=== PATIENT | female | born 1945 | race Caucasian/White ===

== ENCOUNTER 2018-12-24 23:51 | Emergency (ER) | payer MEDICARE, BC ==
[~2018-12-24] VITALS: Ht 165.1 cm; Wt 70.3 kg
[2018-12-25] MEDS ORDERED: OMEPRAZOLE CAP 40MG (00:09)
[2018-12-25] MEDS ORDERED: AMLODIPINE TAB 5MG (00:09)
[2018-12-25] MEDS ORDERED: ATORVASTATIN TAB 20MG (00:09)
[2018-12-25] MEDS ORDERED: IBUP-23 PO (00:09)
[2018-12-25] MEDS ORDERED: ASPI-1094 PO (00:09)
--- NOTE | 2018-12-25 00:33 | NUR ---
Dr. Porter at bedside for MSE.
[2018-12-25 00:48] LABS: BASOPHILS % (AUTO) 0.3 % (0.0-2.0); EOSINOPHILS % (AUTO) 0.2 % (0.0-7.0); HEMATOCRIT 39.9 % (31.2-41.9); LYMPHOCYTES # (AUTO) 1.3 K/uL (20.0-40.0); LYMPHOCYTES % (AUTO) 11.4 % (20.5-51.5); MEAN CORPUSCULAR HEMOGLOBIN 27.9 uug (24.7-32.8); MEAN CORPUSCULAR HGB CONC 33 g/dL (32.3-35.6); MEAN CORPUSCULAR VOLUME 85.8 fL (75.5-95.3); MONOCYTES # (AUTO) 0.1 K/uL (2.0-10.0); MONOCYTES % (AUTO) 0.8 % (0.0-11.0); NEUTROPHILS # (AUTO) 9.9 K/uL (1.8-8.9); NEUTROPHILS % (AUTO) 87.3 % (38.5-71.5); PLATELET COUNT (AUTO) 272 K/uL (179-408); RED BLOOD CELL COUNT(AUTO) 4.66 MIL/uL (3.63-4.92); WHITE BLOOD COUNT (AUTO) 11.4 K/uL (3.8-11.8)
[2018-12-25 01:00] LABS: CARBON DIOXIDE 24 mmol/L (21-32); CHLORIDE 101 mmol/L (98-107); GLUCOSE 118 mg/dL (74-106); POTASSIUM 3.3 mmol/L (3.5-5.1); UREA NITROGEN, BLOOD 34 mg/dL (7-18)
[2018-12-25 01:15] LABS: ALANINE AMINOTRANSFERASE 90 U/L (14-59); ALKALINE PHOSPHATASE 67 U/L (50-136); ASPARTATE AMINOTRANSFERASE 45 U/L (15-37); BILIRUBIN,DIRECT 0.2 mg/dL (0.0-0.2); BILIRUBIN,TOTAL 0.4 mg/dL (0.2-1.0); LIPASE 162 U/L (73-393)
[2018-12-25] MEDS ORDERED: IV NORMAL SALINE 500 ML BAG IV ONE ×2 (01:30→03:15)
--- NOTE | 2018-12-25 01:43 | NUR ---
Pt out of ER for CT.
--- NOTE | 2018-12-25 02:00 | NUR ---
Pt back to ER from CT.
[2018-12-25] MEDS ORDERED: ONDANSETRON 4 MG/2 ML VIAL ONE (02:29)
[2018-12-25] MEDS ORDERED: MORPHINE SULFATE 2 MG/1 ML DISP.SYRIN ONE (02:30)
[2018-12-25] MEDS ORDERED: MORPHINE SULFATE 2 MG/1 ML DISP.SYRIN IV ONE (02:30)
[2018-12-25] MEDS ORDERED: ONDANSETRON 4 MG/2 ML VIAL IV ONE (02:30)
--- NOTE | 2018-12-25 02:35 | NUR ---
Pt provided urine sample, sent to lab.
[2018-12-25 02:53] LABS: *BILIRUBIN,URIN NEGATIVE (NEGATIVE); *BLOOD, URINE 2+ (NEGATIVE); *CLARITY,URINE CLOUDY (CLEAR); *COLOR,URINE YELLOW (YELLOW); *KETONES,URINE NEGATIVE (NEGATIVE); *UROBILINOGEN,URINE 0.2 E.U./dl (NORMAL); LEUKOCYTE ESTERASE ,URINE 1+ (NEGATIVE); NITRITE, URINE NEGATIVE (NEGATIVE); UGLUCOSE NEGATIVE (NEGATIVE)
[2018-12-25 03:06] LABS: BACTERIA,URINE MANY /HPF (NONE SEEN); SQUAMOUS EPITHELIAL CELL,UR FEW /HPF (NONE SEEN)
[2018-12-25] MEDS ORDERED: KETOROLAC TROMETHAMINE 15 MG INJ IVP ONE (03:15)
--- NOTE | 2018-12-25 03:25 | NUR ---
DR MURRAY SPOKE WITH DR RAMOS UROLOGY CONSULT
[2018-12-25] MEDS ORDERED: CEFTRIAXONE 1 G in IV DEXTROSE 5% 50 ML IV ONE (03:30)
[2018-12-25] MEDS ORDERED: CEFTRIAXONE 1 G VIAL ONE (03:37)
[2018-12-25] MEDS ORDERED: KETOROLAC TROMETHAMINE 15 MG INJ ONE (03:37)
[2018-12-25] MEDS ORDERED: POTASSIUM CHLORIDE 20 MEQ TAB.PRT.SR PO ONE (03:45)
[2018-12-25] MEDS ORDERED: POTASSIUM CHLORIDE 20 MEQ TAB.PRT.SR ONE (03:53)
--- NOTE | 2018-12-25 04:51 | NUR ---
Patient discharged to home in stable conditon. Written and verbal after care instructions given. Patient verbalizes understanding of instructions. Pt ambulated out of ER with steady gait, no acute signs of distress, VSS, all belongings taken, IV site discontinued, to be driven home by via private vehicle.
[2018-12-25 04:52] VITALS: BP 116/78
== END 2018-12-25 04:53 | disposition home or self-care (01) ==
LOC: ER 23:52
DX: N20.1 Calculus of ureter (principal); N39.0 Urinary tract infection, site not specified; E86.0 Dehydration; K21.9 Gastro-esophageal reflux disease without esophagitis; G89.29 Other chronic pain; M54.5 Low back pain; Z88.1 Allergy status to other antibiotic agents; Z79.1 Long term (current) use of non-steroidal anti-inflammatories (NSAID); Z79.82 Long term (current) use of aspirin; Z79.899 Other long term (current) drug therapy
CPT/HCPCS: 36415; 71045; 74176; 80048; 80076; 81001; 83605; 83690; 84484; 85025; 85730; 87040 ×2; 87077 ×2; 87086; 87186 ×2; 93005; 96361; 96374; 96375; 99284; J0696; J1885; J2270; J2405; J7060; 70030-TC; A4663; J7030

== ENCOUNTER 2024-07-15 07:10 | Inpatient (IN) | payer MEDICARE, BC ==
[~2024-07-15] VITALS: Ht 165.1 cm; Wt 61.2 kg
[~2024-07-15 07:10] MED LIST: AMLODIPINE TAB 5MG; ASPI-1094 PO; ATORVASTATIN TAB 20MG; IBUP-23 PO; OMEPRAZOLE CAP 40MG
[2024-07-15] MEDS ORDERED: AMLO-212 PO (07:19)
[2024-07-15] MEDS ORDERED: PRAV20TA4 PO (07:19)
[2024-07-15] MEDS ORDERED: ONDANSETRON 4 MG/2 ML VIAL ONE (07:22)
[2024-07-15] MEDS ORDERED: HYDROMORPHONE 1 MG/1 ML DISP.SYRIN ONE ×3 (07:23→10:35)
[2024-07-15] MEDS: HYDROMORPHONE 1 MG/1 ML DISP.SYRIN IV ONE ×2 (07:25→08:54)
[2024-07-15] MEDS: ONDANSETRON 4 MG/2 ML VIAL IV ONE (07:25)
[2024-07-15] MEDS: IV NORMAL SALINE 1000 ML BAG IV ONE (07:25)
[2024-07-15 07:47] LABS: BASOPHILS % (AUTO) 0.4 % (0.0-2.0); EOSINOPHILS % (AUTO) 0.5 % (0.0-7.0); HEMATOCRIT 40.6 % (31.2-41.9); HEMOGLOBIN 13.3 g/dL (10.9-14.3); LYMPHOCYTES # (AUTO) 0.7 K/uL (0.8-4.8); LYMPHOCYTES % (AUTO) 13.5 % (20.5-51.5); MEAN CORPUSCULAR HEMOGLOBIN 29.4 uug (24.7-32.8); MEAN CORPUSCULAR HGB CONC 33 g/dL (32.3-35.6); MEAN CORPUSCULAR VOLUME 89.6 fL (75.5-95.3); MONOCYTES # (AUTO) 0.1 K/uL (0.1-1.30); NEUTROPHILS # (AUTO) 4.1 K/uL (1.8-8.9); NEUTROPHILS % (AUTO) 83.6 % (38.5-71.5); PLATELET COUNT (AUTO) 417 K/uL (179-408); RED BLOOD CELL COUNT(AUTO) 4.53 MIL/uL (3.63-4.92); RED CELL DISTRIBUTION WIDTH 14.6 % (12.3-17.7); WHITE BLOOD COUNT (AUTO) 4.8 K/uL (3.8-11.8)
[2024-07-15 08:19] LABS: DIFFERENTIAL COMMENT 1
[2024-07-15 08:59] LABS: CALCIUM 10.8 mg/dL (8.5-10.1); CARBON DIOXIDE 20 mmol/L (21-32); CHLORIDE 101 mmol/L (98-107); GLUCOSE 167 mg/dL (74-106); POTASSIUM 3.5 mmol/L (3.5-5.1); SODIUM SERUM 135 mmol/L (136-145); UREA NITROGEN, BLOOD 36 mg/dL (7-18)
[2024-07-15 09:07] LABS: ALANINE AMINOTRANSFERASE 87 U/L (14-59); ALBUMIN 3.4 g/dL (3.4-5.0); ALKALINE PHOSPHATASE 187 U/L (50-136); ASPARTATE AMINOTRANSFERASE 23 U/L (15-37); BILIRUBIN,DIRECT 0.3 mg/dL (0.0-0.2); BILIRUBIN,TOTAL 0.9 mg/dL (0.2-1.0); TOTAL PROTEIN, SERUM 7.2 g/dL (6.4-8.2)
[2024-07-15 09:30] LABS: LACTIC ACID 2.7 mmol/L (0.4-2.0)
[2024-07-15] MEDS ORDERED: AZTREONAM 1 G VIAL ONE (09:38)
[2024-07-15] MEDS ORDERED: METRONIDAZOLE 500 MG/NS 100ML 100 ML IV ONE (09:39)
[2024-07-15] MEDS: METRONIDAZOLE 500 MG/NS 100 ML PIGGYBACK IV ONE (09:43)
[2024-07-15] MEDS: DOCUSATE SODIUM 100 MG CAPSULE PO SCH (10:15)
[2024-07-15] MEDS: AZTREONAM 1 G VIAL IM ONE (10:21)
[2024-07-15] MEDS ORDERED: METOCLOPRAMIDE HCL 10 MG/2 ML VIAL ONE (10:35)
[2024-07-15] MEDS: HYDROMORPHONE 1 MG/1 ML DISP.SYRIN IV STA (10:40)
[2024-07-15] MEDS: METOCLOPRAMIDE HCL 10 MG/2 ML VIAL IV STA (10:40)
[2024-07-15 11:21] LABS: LIPASE 28 U/L (16-77)
[2024-07-15] MEDS ORDERED: DOCU100C36 PO (11:22)
[2024-07-15] MEDS ORDERED: DOXY100C5 PO (11:22)
[2024-07-15] MEDS ORDERED: ASPI81TA31 PO (11:22)
[2024-07-15] MEDS ORDERED: NAPR500T6 PO (11:22)
[2024-07-15] MEDS ORDERED: CHOL-35 PO (11:22)
[2024-07-15] MEDS ORDERED: TRAM50TA2 PO (11:22)
[2024-07-15] MEDS ORDERED: ACET-2605 PO (11:22)
[2024-07-15] MEDS ORDERED: TROS60CA3 PO (11:28)
[2024-07-15 11:33] VITALS: BP 124/72; TEMP 98.2; O2SAT 95
[2024-07-15 15:48] VITALS: BP 107/66; TEMP 98; O2SAT 90
[2024-07-15] MEDS ORDERED: CEFTRIAXONE 1 G in IV DEXTROSE 5% 50 ML IV SCH (16:15)
[2024-07-15] MEDS: IV NS 1000 ML 1,000 ML IV ONE (16:46)
[2024-07-15] MEDS: ENOXAPARIN SODIUM 40 MG/0.4 ML DISP.SYRIN SQ SCH (16:50)
[2024-07-15 17:07] VITALS: O2SAT 92
[2024-07-15 17:21] LABS: BASOPHILS # (AUTO) 0.1 K/UL (0.0-0.2); BASOPHILS % (AUTO) 2.5 % (0.0-2.0); EOSINOPHILS % (AUTO) 0.1 % (0.0-7.0); HEMATOCRIT 39.8 % (31.2-41.9); LYMPHOCYTES # (AUTO) 0.2 K/uL (0.8-4.8); LYMPHOCYTES % (AUTO) 4.1 % (20.5-51.5); MEAN CORPUSCULAR HEMOGLOBIN 29.1 uug (24.7-32.8); MEAN CORPUSCULAR HGB CONC 33 g/dL (32.3-35.6); MEAN CORPUSCULAR VOLUME 88.9 fL (75.5-95.3); MONOCYTES # (AUTO) 0.3 K/uL (0.1-1.30); MONOCYTES % (AUTO) 6.1 % (0.0-11.0); NEUTROPHILS # (AUTO) 4.4 K/uL (1.8-8.9); NEUTROPHILS % (AUTO) 87.2 % (38.5-71.5); PLATELET COUNT (AUTO) 405 K/uL (179-408); RED BLOOD CELL COUNT(AUTO) 4.48 MIL/uL (3.63-4.92); RED CELL DISTRIBUTION WIDTH 14.3 % (12.3-17.7); WHITE BLOOD COUNT (AUTO) 5.1 K/uL (3.8-11.8)
[2024-07-15 17:29] LABS: DIFFERENTIAL COMMENT 1
[2024-07-15] MEDS: LACTULOSE 20 G/30 ML LIQUID UDC PO ONE (18:15)
[2024-07-15] MEDS: SORBITOL 70% SOLUTION 30 ML UDC PO ONE (18:15)
[2024-07-15] MEDS: BISACODYL 10 MG SUPP.RECT RC ONE (18:25)
[2024-07-15 18:58] VITALS: BP 98/51; O2SAT 95
[2024-07-15] MEDS: IV NS 1000 ML 1,000 ML IV PRN (19:28)
[2024-07-15 20:00] VITALS: BP 107/68; TEMP 98; O2SAT 92
[2024-07-15] MEDS: METRONIDAZOLE 500 MG TABLET PO SCH (20:31)
[2024-07-15] MEDS: ONDANSETRON 4 MG/2 ML VIAL IV PRN (20:32)
[2024-07-15] MEDS: PIPERACILLIN SODIUM/TAZOBACTAM 3.375 G in IV DEXTROSE 5% 100 ML IV SCH (21:04)
[2024-07-16] VITALS (35 sets, daily range): BP systolic 89–120; BP diastolic 42–86; TEMP 97.7–98.8; O2SAT 84–100
[2024-07-16 04:34] LABS: ABG BASE EXCESS -7.9 mmol/L (-2.0-3.0); ABG HCO3 17.5 mmol/L (21.0-28.0); ABG PCO2 35.6 mmHg (32.0-45.0); ABG PH 7.309 (7.350-7.450); ABG PO2 73.5 mmHg (83.0-108.0); ABG SITE RIGHT RADIAL; ABG TOTAL HEMOGLOBIN 15.1 G/dL (12.0-16.0); AaDO2 93.6 mmHg; COHb 1.3 % (0.5-1.5); MetHb 0.3 % (0.0-1.5); O2Hb 93.7 % (94.0-98.0)
[2024-07-16] MEDS: SODIUM BICARBONATE 8.4% 50 MEQ/50 ML DISP.SYRIN IV ONE (05:36)
[2024-07-16 06:57] LABS: BASOPHILS % (AUTO) 0.1 % (0.0-2.0); HEMATOCRIT 36.1 % (31.2-41.9); HEMOGLOBIN 11.9 g/dL (10.9-14.3); LYMPHOCYTES # (AUTO) 0.6 K/uL (0.8-4.8); LYMPHOCYTES % (AUTO) 7.5 % (20.5-51.5); MEAN CORPUSCULAR HEMOGLOBIN 29.6 uug (24.7-32.8); MEAN CORPUSCULAR HGB CONC 33 g/dL (32.3-35.6); MONOCYTES # (AUTO) 0.5 K/uL (0.1-1.30); MONOCYTES % (AUTO) 6.9 % (0.0-11.0); NEUTROPHILS # (AUTO) 6.8 K/uL (1.8-8.9); NEUTROPHILS % (AUTO) 85.5 % (38.5-71.5); PLATELET COUNT (AUTO) 370 K/uL (179-408); RED BLOOD CELL COUNT(AUTO) 4.01 MIL/uL (3.63-4.92); RED CELL DISTRIBUTION WIDTH 14.5 % (12.3-17.7); WHITE BLOOD COUNT (AUTO) 7.9 K/uL (3.8-11.8)
[2024-07-16 06:58] LABS: DIFFERENTIAL COMMENT 1
[2024-07-16 07:08] LABS: CALCIUM 10.4 mg/dL (8.5-10.1); CARBON DIOXIDE 16 mmol/L (21-32); CHLORIDE 106 mmol/L (98-107); CREATININE 1.5 mg/dL (0.6-1.3); GLUCOSE 116 mg/dL (74-106); MAGNESIUM 2.7 mg/dL (1.8-2.4); PHOSPHOROUS 5.9 mg/dL (2.5-4.9); POTASSIUM 4.2 mmol/L (3.5-5.1); SODIUM SERUM 132 mmol/L (136-145); UREA NITROGEN, BLOOD 51 mg/dL (7-18)
[2024-07-16 07:50] LABS: ABG HCO3 15.1 mmol/L (21.0-28.0); ABG PCO2 27.8 mmHg (32.0-45.0); ABG PH 7.352 (7.350-7.450); ABG PO2 87.1 mmHg (83.0-108.0); ABG SITE RIGHT RADIAL; ABG TOTAL HEMOGLOBIN 12.5 G/dL (12.0-16.0); AaDO2 96.4 mmHg; COHb 0.2 % (0.5-1.5); MetHb 0.3 % (0.0-1.5); O2Hb 96.2 % (94.0-98.0)
[2024-07-16] MEDS: BISACODYL 10 MG SUPP.RECT RC ONE (09:20)
[2024-07-16] MEDS: ACETAMINOPHEN 325 MG TABLET PO PRN (09:25)
[2024-07-16 13:17] LABS: ABG BASE EXCESS -7.2 mmol/L (-2.0-3.0); ABG HCO3 15.9 mmol/L (21.0-28.0); ABG PCO2 25.8 mmHg (32.0-45.0); ABG PH 7.409 (7.350-7.450); ABG PO2 65.2 mmHg (83.0-108.0); ABG TOTAL HEMOGLOBIN 12.2 G/dL (12.0-16.0); AaDO2 93.4 mmHg; COHb 0.6 % (0.5-1.5); MetHb 0.3 % (0.0-1.5); O2Hb 92.9 % (94.0-98.0)
[2024-07-16] MEDS ORDERED: METRONIDAZOLE 500 MG TABLET PO SCH (14:00)
[2024-07-16] MEDS: FLEET ENEMA 133 ML BOTTLE RC ONE (15:12)
[2024-07-16 20:24] LABS: *BILIRUBIN,URIN 2+ (NEGATIVE); *BLOOD, URINE 1+ (NEGATIVE); *CLARITY,URINE CLEAR (CLEAR); *COLOR,URINE DARK YELLOW (YELLOW); *KETONES,URINE TRACE (NEGATIVE); *PROTEIN,URINE 1+ (NEGATIVE); LEUKOCYTE ESTERASE ,URINE NEGATIVE (NEGATIVE); NITRITE, URINE NEGATIVE (NEGATIVE); PH,URINE 5.5 (5.0-8.0); UGLUCOSE NEGATIVE (NEGATIVE)
[2024-07-16 20:39] LABS: WBC,URINE 0-3 /HPF (0-3)
[2024-07-16 20:40] LABS: BACTERIA,URINE FEW /HPF (NONE SEEN); SQUAMOUS EPITHELIAL CELL,UR FEW /HPF (NONE SEEN)
[2024-07-16] MEDS: IV NORMAL SALINE 250 ML IV ONE (22:49)
[2024-07-16] MEDS: MORPHINE SULFATE 2 MG/1 ML DISP.SYRIN IV PRN (23:47)
[2024-07-17] VITALS (72 sets, daily range): BP systolic 81–142; BP diastolic 52–107; TEMP 97.8–98.8; O2SAT 90–97
[2024-07-17] MEDS ORDERED: PHENYLEPHRINE IV 50 MG in IV NORMAL SALINE 245 ML IV PRN (00:30)
[2024-07-17] MEDS ORDERED: PHENYLEPHRINE 10 MG/1 ML VIAL ONE (00:57)
[2024-07-17] MEDS: PHENYLEPHRINE IV 50 MG in IV NORMAL SALINE 245 ML IV PRN (01:01)
[2024-07-17] MEDS: DILTIAZEM HCL 25 MG IV IV ONE (02:16)
[2024-07-17 05:51] LABS: BASOPHILS % (AUTO) 0.1 % (0.0-2.0); EOSINOPHILS % (AUTO) 0.1 % (0.0-7.0); HEMOGLOBIN 10.8 g/dL (10.9-14.3); LYMPHOCYTES # (AUTO) 0.5 K/uL (0.8-4.8); LYMPHOCYTES % (AUTO) 4.7 % (20.5-51.5); MEAN CORPUSCULAR HEMOGLOBIN 29.7 uug (24.7-32.8); MEAN CORPUSCULAR HGB CONC 34 g/dL (32.3-35.6); MEAN CORPUSCULAR VOLUME 88.1 fL (75.5-95.3); MONOCYTES # (AUTO) 0.3 K/uL (0.1-1.30); MONOCYTES % (AUTO) 3.2 % (0.0-11.0); NEUTROPHILS # (AUTO) 8.9 K/uL (1.8-8.9); NEUTROPHILS % (AUTO) 91.9 % (38.5-71.5); PLATELET COUNT (AUTO) 336 K/uL (179-408); RED BLOOD CELL COUNT(AUTO) 3.63 MIL/uL (3.63-4.92); RED CELL DISTRIBUTION WIDTH 14.6 % (12.3-17.7); WHITE BLOOD COUNT (AUTO) 9.7 K/uL (3.8-11.8)
[2024-07-17 06:00] LABS: CALCIUM 9.1 mg/dL (8.5-10.1); CARBON DIOXIDE 20 mmol/L (21-32); CHLORIDE 111 mmol/L (98-107); CREATININE 1.4 mg/dL (0.6-1.3); GLUCOSE 99 mg/dL (74-106); MAGNESIUM 2.6 mg/dL (1.8-2.4); PHOSPHOROUS 6.9 mg/dL (2.5-4.9); POTASSIUM 3.8 mmol/L (3.5-5.1); SODIUM SERUM 144 mmol/L (136-145); UREA NITROGEN, BLOOD 59 mg/dL (7-18)
[2024-07-17 06:37] LABS: ABG BASE EXCESS -7.5 mmol/L (-2.0-3.0); ABG HCO3 16.8 mmol/L (21.0-28.0); ABG PCO2 30.2 mmHg (32.0-45.0); ABG PH 7.362 (7.350-7.450); ABG PO2 63.1 mmHg (83.0-108.0); ABG SITE RIGHT RADIAL; ABG TOTAL HEMOGLOBIN 11.7 G/dL (12.0-16.0); AaDO2 91.8 mmHg; COHb 0.1 % (0.5-1.5); MetHb 0.1 % (0.0-1.5); O2Hb 91.8 % (94.0-98.0)
[2024-07-17] MEDS: BISACODYL 10 MG SUPP.RECT RC ONE (07:06)
[2024-07-17] MEDS: IV NS 1000 ML 1,000 ML IV ONE (08:20)
[2024-07-17] MEDS: FAMOTIDINE. 20 MG/2 ML VIAL IV SCH (09:35)
[2024-07-17] MEDS ORDERED: SWABABLE VALVE TRANSFER SET EA MC ONE (09:39)
[2024-07-17] MEDS ORDERED: IV NORMAL SALINE 250 ML IV ONE (09:39)
[2024-07-17] MEDS ORDERED: IOHEXOL 350 100 ML INFUS..BTL ONE (09:39)
[2024-07-17] MEDS ORDERED: HEPARIN/D5W 25000 UNITS/500 ML BAG IV ONE (10:00)
[2024-07-17] MEDS: HEPARIN/D5W DRIP 500 ML IV PRN (10:32)
[2024-07-17] MEDS: AMIODARONE HCL IV 150 MG in IV DEXTROSE 5% 100 ML IV ONE (12:05)
[2024-07-17] MEDS: AMIODARONE HCL IV 450 MG in IV DEXTROSE 5% 250 ML IV PRN (12:26)
[2024-07-17] MEDS ORDERED: FLEET ENEMA 133 ML BOTTLE RC PRN (20:45)
[2024-07-17 20:49] LABS: ABG BASE EXCESS -8.4 mmol/L (-2.0-3.0); ABG HCO3 16.1 mmol/L (21.0-28.0); ABG PCO2 30.3 mmHg (32.0-45.0); ABG PH 7.343 (7.350-7.450); ABG PO2 71.9 mmHg (83.0-108.0); ABG SITE LEFT RADIAL; AaDO2 93.9 mmHg; COHb 0.3 % (0.5-1.5); MetHb 0.2 % (0.0-1.5); O2Hb 93.6 % (94.0-98.0)
[2024-07-17 20:58] LABS: CALCIUM 8.6 mg/dL (8.5-10.1); CARBON DIOXIDE 17 mmol/L (21-32); CHLORIDE 113 mmol/L (98-107); CREATININE 1.3 mg/dL (0.6-1.3); GLUCOSE 113 mg/dL (74-106); POTASSIUM 3.2 mmol/L (3.5-5.1); SODIUM SERUM 141 mmol/L (136-145); UREA NITROGEN, BLOOD 57 mg/dL (7-18)
[2024-07-17 20:59] LABS: BASOPHILS % (AUTO) 0.1 % (0.0-2.0); DIFFERENTIAL COMMENT 1; EOSINOPHILS % (AUTO) 0.1 % (0.0-7.0); HEMATOCRIT 31.2 % (31.2-41.9); HEMOGLOBIN 10.4 g/dL (10.9-14.3); LYMPHOCYTES # (AUTO) 0.4 K/uL (0.8-4.8); LYMPHOCYTES % (AUTO) 5.4 % (20.5-51.5); MEAN CORPUSCULAR HEMOGLOBIN 29.2 uug (24.7-32.8); MEAN CORPUSCULAR HGB CONC 33 g/dL (32.3-35.6); MONOCYTES # (AUTO) 0.3 K/uL (0.1-1.30); MONOCYTES % (AUTO) 3.8 % (0.0-11.0); NEUTROPHILS # (AUTO) 6.1 K/uL (1.8-8.9); NEUTROPHILS % (AUTO) 90.6 % (38.5-71.5); PLATELET COUNT (AUTO) 291 K/uL (179-408); RED BLOOD CELL COUNT(AUTO) 3.54 MIL/uL (3.63-4.92); RED CELL DISTRIBUTION WIDTH 14.4 % (12.3-17.7); WHITE BLOOD COUNT (AUTO) 6.8 K/uL (3.8-11.8)
[2024-07-17] MEDS: FLEET ENEMA 133 ML BOTTLE RC ONE (20:59)
[2024-07-17 21:03] LABS: ALANINE AMINOTRANSFERASE 48 U/L (14-59); ALBUMIN 1.5 g/dL (3.4-5.0); ALKALINE PHOSPHATASE 62 U/L (50-136); ASPARTATE AMINOTRANSFERASE 56 U/L (15-37); BILIRUBIN,TOTAL 0.6 mg/dL (0.2-1.0); TOTAL PROTEIN, SERUM 5.3 g/dL (6.4-8.2)
[2024-07-17 21:20] LABS: BAND % (MANUAL) 15 % (0-10); LYMPHOCYTES % (MANUAL) 8 % (20-40); MONOCYTES % (MANUAL) 4 % (2-10); NEUTROPHILS % (MANUAL) 73 % (42-75)
[2024-07-17 21:21] LABS: PLATELET ESTIMATE ADEQU
[2024-07-17] MEDS: POTASSIUM CHLORIDE 50 ML IV SCH (22:53)
[2024-07-18] VITALS (35 sets, daily range): BP systolic 133–169; BP diastolic 46–149; TEMP 97.9–99.9; O2SAT 92–98
[2024-07-18 06:23] LABS: ABG BASE EXCESS -8.6 mmol/L (-2.0-3.0); ABG HCO3 15.5 mmol/L (21.0-28.0); ABG PCO2 27.8 mmHg (32.0-45.0); ABG PH 7.364 (7.350-7.450); ABG PO2 71.3 mmHg (83.0-108.0); ABG SITE LEFT RADIAL; ABG TOTAL HEMOGLOBIN 11.2 G/dL (12.0-16.0); AaDO2 94.2 mmHg; COHb 0.2 % (0.5-1.5); MetHb 0.3 % (0.0-1.5); O2Hb 93.9 % (94.0-98.0)
[2024-07-18 06:27] LABS: BASOPHILS % (AUTO) 0.1 % (0.0-2.0); EOSINOPHILS % (AUTO) 0.1 % (0.0-7.0); HEMATOCRIT 29.8 % (31.2-41.9); HEMOGLOBIN 10.1 g/dL (10.9-14.3); LYMPHOCYTES # (AUTO) 0.4 K/uL (0.8-4.8); LYMPHOCYTES % (AUTO) 6.9 % (20.5-51.5); MEAN CORPUSCULAR HEMOGLOBIN 29.6 uug (24.7-32.8); MEAN CORPUSCULAR HGB CONC 34 g/dL (32.3-35.6); MEAN CORPUSCULAR VOLUME 87.7 fL (75.5-95.3); MONOCYTES # (AUTO) 0.2 K/uL (0.1-1.30); MONOCYTES % (AUTO) 3.5 % (0.0-11.0); NEUTROPHILS # (AUTO) 5.6 K/uL (1.8-8.9); NEUTROPHILS % (AUTO) 89.4 % (38.5-71.5); PLATELET COUNT (AUTO) 278 K/uL (179-408); RED CELL DISTRIBUTION WIDTH 14.5 % (12.3-17.7); WHITE BLOOD COUNT (AUTO) 6.3 K/uL (3.8-11.8)
[2024-07-18 06:48] LABS: ALANINE AMINOTRANSFERASE 47 U/L (14-59); ALKALINE PHOSPHATASE 65 U/L (50-136); AMYLASE 195 U/L (25-115); ASPARTATE AMINOTRANSFERASE 48 U/L (15-37); BILIRUBIN,DIRECT 0.4 mg/dL (0.0-0.2); BILIRUBIN,TOTAL 0.6 mg/dL (0.2-1.0); CALCIUM 8.3 mg/dL (8.5-10.1); CARBON DIOXIDE 18 mmol/L (21-32); CHLORIDE 114 mmol/L (98-107); CREATININE 1.1 mg/dL (0.6-1.3); GLUCOSE 119 mg/dL (74-106); LIPASE 21 U/L (16-77); MAGNESIUM 2.7 mg/dL (1.8-2.4); PHOSPHOROUS 4.3 mg/dL (2.5-4.9); POTASSIUM 3.5 mmol/L (3.5-5.1); SODIUM SERUM 144 mmol/L (136-145); TOTAL PROTEIN, SERUM 5.3 g/dL (6.4-8.2); UREA NITROGEN, BLOOD 53 mg/dL (7-18)
[2024-07-18 06:55] LABS: ALBUMIN 1.4 g/dL (3.4-5.0)
[2024-07-18 07:11] LABS: DIFFERENTIAL COMMENT 1
[2024-07-18 07:22] LABS: C-REACTIVE PROTEIN 21.15 mg/dL (0.00-0.30)
[2024-07-18] MEDS: BISACODYL 10 MG SUPP.RECT RC ONE (13:03)
[2024-07-18 13:08] LABS: HIV-1 p24 ANTIGEN NON REACTIVE (NONREACTIVE); HIV-1/2 ANTIBODY NON REACTIVE (NONREACTIVE)
[2024-07-18] MEDS: SODIUM BICARBONATE 8.4% 50 MEQ in IV D5W 1000ML 1,000 ML IV PRN (13:16)
[2024-07-18] MEDS ORDERED: AMIODARONE HCL 150 MG/3 ML VIAL IV ONE (22:20)
[2024-07-19] VITALS (27 sets, daily range): BP systolic 129–170; BP diastolic 50–79; TEMP 97.5–98.5; O2SAT 83–99
[2024-07-19 06:54] LABS: BASOPHILS % (AUTO) 0.1 % (0.0-2.0); EOSINOPHILS # (AUTO) 0.1 K/uL (0.0-0.7); HEMATOCRIT 33.1 % (31.2-41.9); HEMOGLOBIN 11.1 g/dL (10.9-14.3); LYMPHOCYTES # (AUTO) 0.9 K/uL (0.8-4.8); LYMPHOCYTES % (AUTO) 11.9 % (20.5-51.5); MEAN CORPUSCULAR HEMOGLOBIN 29.7 uug (24.7-32.8); MEAN CORPUSCULAR HGB CONC 34 g/dL (32.3-35.6); MEAN CORPUSCULAR VOLUME 88.6 fL (75.5-95.3); MONOCYTES # (AUTO) 0.6 K/uL (0.1-1.30); MONOCYTES % (AUTO) 7.7 % (0.0-11.0); NEUTROPHILS # (AUTO) 5.8 K/uL (1.8-8.9); NEUTROPHILS % (AUTO) 79.3 % (38.5-71.5); PLATELET COUNT (AUTO) 251 K/uL (179-408); RED BLOOD CELL COUNT(AUTO) 3.73 MIL/uL (3.63-4.92); RED CELL DISTRIBUTION WIDTH 14.8 % (12.3-17.7); WHITE BLOOD COUNT (AUTO) 7.3 K/uL (3.8-11.8)
[2024-07-19 07:04] LABS: CARBON DIOXIDE 20 mmol/L (21-32); CHLORIDE 109 mmol/L (98-107); GLUCOSE 153 mg/dL (74-106); MAGNESIUM 2.7 mg/dL (1.8-2.4); PHOSPHOROUS 2.6 mg/dL (2.5-4.9); POTASSIUM 2.8 mmol/L (3.5-5.1); SODIUM SERUM 140 mmol/L (136-145); UREA NITROGEN, BLOOD 39 mg/dL (7-18)
[2024-07-19 07:11] LABS: DIFFERENTIAL COMMENT 1
[2024-07-19] MEDS ORDERED: POTASSIUM CHLORIDE 50 ML IV SCH (07:45)
[2024-07-19] MEDS: POTASSIUM CHLORIDE 50 ML IV SCH ×2 (08:37→09:26)
[2024-07-19] MEDS: LACTULOSE 20 G/30 ML LIQUID UDC PO ONE (14:15)
[2024-07-19 15:19] LABS: CALCIUM 7.8 mg/dL (8.5-10.1); CARBON DIOXIDE 22 mmol/L (21-32); CHLORIDE 108 mmol/L (98-107); CREATININE 0.8 mg/dL (0.6-1.3); GLUCOSE 138 mg/dL (74-106); POTASSIUM 3.2 mmol/L (3.5-5.1); SODIUM SERUM 138 mmol/L (136-145); UREA NITROGEN, BLOOD 32 mg/dL (7-18)
[2024-07-19] MEDS: AMLODIPINE 5 MG TABLET NG SCH (16:19)
[2024-07-19] MEDS ORDERED: ACETAMINOPHEN 650 MG/20.3 ML LIQUID UDC NG PRN (16:30)
[2024-07-19] MEDS: ENOXAPARIN SODIUM 60 MG/0.6 ML DISP.SYRIN SQ SCH (21:01)
[2024-07-19] MEDS: AMIODARONE HCL 150 MG/3 ML VIAL IV ONE (21:23)
[2024-07-19] MEDS ORDERED: PIPERACILLIN SODIUM/TAZO 3.375 GM VIAL ONE (22:00)
[2024-07-19] MEDS: PIPERACILLIN SODIUM/TAZOBACTAM 3.375 G in IV DEXTROSE 5% 100 ML IV SCH (22:27)
[2024-07-20] VITALS (30 sets, daily range): BP systolic 139–168; BP diastolic 51–68; TEMP 98–99.8; O2SAT 92–99
[2024-07-20] MEDS: BISACODYL 10 MG SUPP.RECT RC PRN
[2024-07-20 05:13] LABS: BASOPHILS % (AUTO) 0.1 % (0.0-2.0); EOSINOPHILS % (AUTO) 0.4 % (0.0-7.0); HEMATOCRIT 32.6 % (31.2-41.9); HEMOGLOBIN 10.9 g/dL (10.9-14.3); LYMPHOCYTES # (AUTO) 0.8 K/uL (0.8-4.8); LYMPHOCYTES % (AUTO) 8.7 % (20.5-51.5); MEAN CORPUSCULAR HEMOGLOBIN 29.2 uug (24.7-32.8); MEAN CORPUSCULAR HGB CONC 33 g/dL (32.3-35.6); MEAN CORPUSCULAR VOLUME 87.7 fL (75.5-95.3); MONOCYTES % (AUTO) 0.2 % (0.0-11.0); NEUTROPHILS # (AUTO) 8.6 K/uL (1.8-8.9); NEUTROPHILS % (AUTO) 90.6 % (38.5-71.5); PLATELET COUNT (AUTO) 256 K/uL (179-408); RED BLOOD CELL COUNT(AUTO) 3.71 MIL/uL (3.63-4.92); RED CELL DISTRIBUTION WIDTH 14.5 % (12.3-17.7); WHITE BLOOD COUNT (AUTO) 9.5 K/uL (3.8-11.8)
[2024-07-20 05:43] LABS: CALCIUM 8.1 mg/dL (8.5-10.1); CARBON DIOXIDE 22 mmol/L (21-32); CHLORIDE 106 mmol/L (98-107); CREATININE 0.8 mg/dL (0.6-1.3); GLUCOSE 134 mg/dL (74-106); MAGNESIUM 2.1 mg/dL (1.8-2.4); PHOSPHOROUS 2.1 mg/dL (2.5-4.9); SODIUM SERUM 139 mmol/L (136-145); UREA NITROGEN, BLOOD 27 mg/dL (7-18)
[2024-07-20] MEDS ORDERED: PIPERACILLIN SODIUM/TAZO 3.375 GM VIAL ONE (06:31)
[2024-07-20] MEDS: PIPERACILLIN SODIUM/TAZOBACTAM 3.375 G in IV DEXTROSE 5% 100 ML IV SCH (06:35)
[2024-07-20] MEDS: POTASSIUM CHLORIDE 50 ML IV SCH (07:04)
[2024-07-20] MEDS: AMLODIPINE 5 MG TABLET PO SCH (08:08)
[2024-07-20 08:23] LABS: BILIRUBIN,DIRECT 0.8 mg/dL (0.0-0.2); BILIRUBIN,TOTAL 1.3 mg/dL (0.2-1.0)
[2024-07-20] MEDS ORDERED: POTASSIUM PHOSPHATE MM 15 MMOL in IV NORMAL SALINE 250 ML IV ONE (08:45)
[2024-07-20] MEDS: hydrALAZINE HCL 20 MG/1 ML VIAL IV PRN (10:12)
[2024-07-20] MEDS: SODIUM PHOSPHATE MM 15 MMOL in IV NORMAL SALINE 250 ML IV ONE (10:45)
[2024-07-20] MEDS: BISACODYL 10 MG SUPP.RECT RC ONE (12:43)
[2024-07-20] MEDS: ACETAMINOPHEN 500 MG TABLET NG PRN (13:00)
[2024-07-20] MEDS: MAGNESIUM HYDROXIDE 30 ML LIQUID UDC PO PRN (14:04)
[2024-07-20] MEDS: PANTOPRAZOLE SODIUM 40 MG VIAL IV SCH (14:04)
[2024-07-21] VITALS (31 sets, daily range): BP systolic 117–181; BP diastolic 52–80; TEMP 97.7–98.6; O2SAT 91–98
[2024-07-21 05:41] LABS: BASOPHILS % (AUTO) 0.2 % (0.0-2.0); EOSINOPHILS % (AUTO) 0.1 % (0.0-7.0); HEMATOCRIT 31.7 % (31.2-41.9); HEMOGLOBIN 10.4 g/dL (10.9-14.3); LYMPHOCYTES % (AUTO) 6.1 % (20.5-51.5); MEAN CORPUSCULAR HEMOGLOBIN 28.5 uug (24.7-32.8); MEAN CORPUSCULAR HGB CONC 33 g/dL (32.3-35.6); MEAN CORPUSCULAR VOLUME 86.6 fL (75.5-95.3); MONOCYTES # (AUTO) 0.6 K/uL (0.1-1.30); MONOCYTES % (AUTO) 3.5 % (0.0-11.0); NEUTROPHILS # (AUTO) 15.3 K/uL (1.8-8.9); NEUTROPHILS % (AUTO) 90.1 % (38.5-71.5); PLATELET COUNT (AUTO) 308 K/uL (179-408); RED BLOOD CELL COUNT(AUTO) 3.66 MIL/uL (3.63-4.92); RED CELL DISTRIBUTION WIDTH 14.3 % (12.3-17.7)
[2024-07-21 06:18] LABS: DIFFERENTIAL COMMENT 1
[2024-07-21 06:21] LABS: ALANINE AMINOTRANSFERASE 24 U/L (14-59); ALKALINE PHOSPHATASE 105 U/L (50-136); AMYLASE 73 U/L (25-115); ASPARTATE AMINOTRANSFERASE 31 U/L (15-37); BILIRUBIN,DIRECT 0.6 mg/dL (0.0-0.2); BILIRUBIN,TOTAL 1.2 mg/dL (0.2-1.0); CALCIUM 7.5 mg/dL (8.5-10.1); CARBON DIOXIDE 23 mmol/L (21-32); CHLORIDE 98 mmol/L (98-107); CREATININE 0.8 mg/dL (0.6-1.3); GLUCOSE 130 mg/dL (74-106); MAGNESIUM 2.3 mg/dL (1.8-2.4); PHOSPHOROUS 2.3 mg/dL (2.5-4.9); SODIUM SERUM 129 mmol/L (136-145); TOTAL PROTEIN, SERUM 5.4 g/dL (6.4-8.2); UREA NITROGEN, BLOOD 17 mg/dL (7-18)
[2024-07-21 06:25] LABS: POTASSIUM 2.5 mmol/L (3.5-5.1)
[2024-07-21 06:26] LABS: ALBUMIN 1.3 g/dL (3.4-5.0)
[2024-07-21] MEDS ORDERED: ALBUMIN HUMAN 25% 50 ML IV PRN (08:00)
[2024-07-21 08:13] LABS: EOSINOPHILS % (AUTO) 0.1 % (0.0-7.0); HEMATOCRIT 31.8 % (31.2-41.9); HEMOGLOBIN 10.4 g/dL (10.9-14.3); LYMPHOCYTES # (AUTO) 1.1 K/uL (0.8-4.8); LYMPHOCYTES % (AUTO) 6.4 % (20.5-51.5); MEAN CORPUSCULAR HEMOGLOBIN 28.9 uug (24.7-32.8); MEAN CORPUSCULAR HGB CONC 33 g/dL (32.3-35.6); MEAN CORPUSCULAR VOLUME 88.3 fL (75.5-95.3); MONOCYTES # (AUTO) 1.4 K/uL (0.1-1.30); MONOCYTES % (AUTO) 8.2 % (0.0-11.0); NEUTROPHILS # (AUTO) 14.4 K/uL (1.8-8.9); NEUTROPHILS % (AUTO) 85.3 % (38.5-71.5); PLATELET COUNT (AUTO) 186 K/uL (179-408); RED CELL DISTRIBUTION WIDTH 14.7 % (12.3-17.7); WHITE BLOOD COUNT (AUTO) 16.9 K/uL (3.8-11.8)
[2024-07-21 08:26] LABS: DIFFERENTIAL COMMENT 1
[2024-07-21 08:37] LABS: ALANINE AMINOTRANSFERASE 25 U/L (14-59); ALKALINE PHOSPHATASE 101 U/L (50-136); ASPARTATE AMINOTRANSFERASE 33 U/L (15-37); BILIRUBIN,TOTAL 1.2 mg/dL (0.2-1.0); CALCIUM 7.4 mg/dL (8.5-10.1); CARBON DIOXIDE 22 mmol/L (21-32); CHLORIDE 98 mmol/L (98-107); CREATININE 0.8 mg/dL (0.6-1.3); GLUCOSE 137 mg/dL (74-106); SODIUM SERUM 129 mmol/L (136-145); UREA NITROGEN, BLOOD 16 mg/dL (7-18)
[2024-07-21 08:43] LABS: ALBUMIN 1.3 g/dL (3.4-5.0); POTASSIUM 2.5 mmol/L (3.5-5.1)
[2024-07-21] MEDS: POTASSIUM CHLORIDE 50 ML IV SCH (09:06)
[2024-07-21] MEDS: LOSARTAN POTASSIUM 50 MG TABLET PO SCH (09:07)
[2024-07-21] MEDS: AMIODARONE HCL 200 MG TABLET PO SCH (09:07)
[2024-07-21] MEDS: APIXABAN 2.5 MG TABLET PO SCH (09:18)
[2024-07-21] MEDS: IV D5 1/2 NS 1000 ML 1,000 ML IV PRN (09:39)
[2024-07-21] MEDS: ALBUMIN HUMAN 25% 100 ML IV ONE (10:22)
[2024-07-21] MEDS ORDERED: SODIUM BICARBONATE 8.4% 50 MEQ in IV D5W 1000ML 1,000 ML IV PRN (11:00)
[2024-07-21] MEDS: POTASSIUM PHOSPHATE MM 15 MMOL in IV NORMAL SALINE 250 ML IV ONE (12:04)
[2024-07-21] MEDS ORDERED: DIATR MEGLU/DIATRIZOATE SODIUM 30 ML BOTTLE ONE (12:32)
[2024-07-21] MEDS: POTASSIUM CHLORIDE 20 MEQ in IV NS 1000 ML 1,000 ML IV PRN (16:00)
[2024-07-22] VITALS (36 sets, daily range): BP systolic 119–154; BP diastolic 60–112; TEMP 97.7–98.8; O2SAT 91–97
[2024-07-22 03:20] LABS: *SODIUM RNDM,URINE 36 mmol/L (40-220)
[2024-07-22 05:00] LABS: BASOPHILS % (AUTO) 0.1 % (0.0-2.0); EOSINOPHILS % (AUTO) 0.1 % (0.0-7.0); HEMATOCRIT 30.6 % (31.2-41.9); MEAN CORPUSCULAR HEMOGLOBIN 28.5 uug (24.7-32.8); MEAN CORPUSCULAR HGB CONC 33 g/dL (32.3-35.6); MEAN CORPUSCULAR VOLUME 86.9 fL (75.5-95.3); MONOCYTES % (AUTO) 6.2 % (0.0-11.0); NEUTROPHILS # (AUTO) 14.3 K/uL (1.8-8.9); NEUTROPHILS % (AUTO) 87.6 % (38.5-71.5); PLATELET COUNT (AUTO) 348 K/uL (179-408); RED BLOOD CELL COUNT(AUTO) 3.52 MIL/uL (3.63-4.92); RED CELL DISTRIBUTION WIDTH 14.6 % (12.3-17.7); WHITE BLOOD COUNT (AUTO) 16.4 K/uL (3.8-11.8)
[2024-07-22 05:53] LABS: CALCIUM 7.8 mg/dL (8.5-10.1); CARBON DIOXIDE 25 mmol/L (21-32); CHLORIDE 104 mmol/L (98-107); CREATININE 0.7 mg/dL (0.6-1.3); GLUCOSE 94 mg/dL (74-106); MAGNESIUM 2.3 mg/dL (1.8-2.4); PHOSPHOROUS 2.1 mg/dL (2.5-4.9); POTASSIUM 2.9 mmol/L (3.5-5.1); SODIUM SERUM 137 mmol/L (136-145); UREA NITROGEN, BLOOD 16 mg/dL (7-18)
[2024-07-22 06:13] LABS: ABG BASE EXCESS 0.1 mmol/L (-2.0-3.0); ABG HCO3 23.4 mmol/L (21.0-28.0); ABG PCO2 33.2 mmHg (32.0-45.0); ABG PH 7.466 (7.350-7.450); ABG PO2 65.5 mmHg (83.0-108.0); ABG SITE LEFT RADIAL; ABG TOTAL HEMOGLOBIN 11.3 G/dL (12.0-16.0); AaDO2 94.2 mmHg; COHb 0.3 % (0.5-1.5); MetHb 0.1 % (0.0-1.5); O2Hb 93.9 % (94.0-98.0)
[2024-07-22] MEDS: POTASSIUM CHLORIDE 20 MEQ POWDER PACKET NG ONE (08:29)
[2024-07-22] MEDS: POTASSIUM PHOSPHATE MM 15 MMOL in IV NORMAL SALINE 250 ML IV ONE (10:02)
[2024-07-22] MEDS: FLEET ENEMA 133 ML BOTTLE RC ONE ×2 (11:10→20:30)
[2024-07-22] MEDS: METOCLOPRAMIDE HCL 10 MG/2 ML VIAL IV ONE (11:10)
[2024-07-22] MEDS ORDERED: MINERAL OIL FLEET ENEMA 133 ML BOTTLE RC ONE (20:35)
[2024-07-22] MEDS ORDERED: MINERAL OIL 10 ML VIAL TP ONE (21:16)
[2024-07-23] VITALS (27 sets, daily range): BP systolic 134–160; BP diastolic 63–86; TEMP 97.6–98.8; O2SAT 92–97
[2024-07-23] MEDS: MIRALAX 17 GM POWD.PACK NG SCH (00:54)
[2024-07-23 05:03] LABS: BASOPHILS % (AUTO) 0.1 % (0.0-2.0); EOSINOPHILS % (AUTO) 0.4 % (0.0-7.0); HEMATOCRIT 29.5 % (31.2-41.9); HEMOGLOBIN 9.7 g/dL (10.9-14.3); LYMPHOCYTES % (AUTO) 7.1 % (20.5-51.5); MEAN CORPUSCULAR HEMOGLOBIN 28.7 uug (24.7-32.8); MEAN CORPUSCULAR HGB CONC 33 g/dL (32.3-35.6); MEAN CORPUSCULAR VOLUME 87.5 fL (75.5-95.3); MONOCYTES % (AUTO) 7.6 % (0.0-11.0); NEUTROPHILS # (AUTO) 11.5 K/uL (1.8-8.9); NEUTROPHILS % (AUTO) 84.8 % (38.5-71.5); PLATELET COUNT (AUTO) 427 K/uL (179-408); RED BLOOD CELL COUNT(AUTO) 3.37 MIL/uL (3.63-4.92); RED CELL DISTRIBUTION WIDTH 14.7 % (12.3-17.7); WHITE BLOOD COUNT (AUTO) 13.6 K/uL (3.8-11.8)
[2024-07-23 05:17] LABS: CALCIUM 7.2 mg/dL (8.5-10.1); CARBON DIOXIDE 22 mmol/L (21-32); CHLORIDE 107 mmol/L (98-107); CREATININE 0.6 mg/dL (0.6-1.3); GLUCOSE 79 mg/dL (74-106); MAGNESIUM 2.2 mg/dL (1.8-2.4); PHOSPHOROUS 2.4 mg/dL (2.5-4.9); POTASSIUM 4.5 mmol/L (3.5-5.1); SODIUM SERUM 138 mmol/L (136-145); UREA NITROGEN, BLOOD 15 mg/dL (7-18)
[2024-07-23] MEDS: ONDANSETRON 4 MG/2 ML VIAL IV PRN (08:17)
[2024-07-23] MEDS: MIRALAX 17 GM POWD.PACK PO SCH (08:19)
[2024-07-23] MEDS: ALBUMIN HUMAN 25% 100 ML IV SCH (08:52)
[2024-07-23] MEDS: FUROSEMIDE 20 MG/2 ML VIAL IV SCH (10:14)
[2024-07-23] MEDS: SODIUM PHOSPHATE MM 15 MMOL in IV NORMAL SALINE 250 ML IV ONE (16:25)
[2024-07-23] MEDS: LINACLOTIDE 290 MCG NG SCH (16:46)
[2024-07-23] MEDS ORDERED: MAGNESIUM CITRATE 296 ML BOTTLE ONE (21:40)
[2024-07-23] MEDS: MAGNESIUM CITRATE 296 ML BOTTLE PO SCH (22:00)
[2024-07-24] VITALS (33 sets, daily range): BP systolic 123–149; BP diastolic 62–78; TEMP 98.2–98.6; O2SAT 94–99
[2024-07-24 04:59] LABS: BASOPHILS % (AUTO) 0.1 % (0.0-2.0); EOSINOPHILS # (AUTO) 0.1 K/uL (0.0-0.7); EOSINOPHILS % (AUTO) 0.6 % (0.0-7.0); HEMATOCRIT 27.7 % (31.2-41.9); HEMOGLOBIN 9.2 g/dL (10.9-14.3); LYMPHOCYTES # (AUTO) 0.8 K/uL (0.8-4.8); LYMPHOCYTES % (AUTO) 6.8 % (20.5-51.5); MEAN CORPUSCULAR HEMOGLOBIN 28.8 uug (24.7-32.8); MEAN CORPUSCULAR HGB CONC 33 g/dL (32.3-35.6); MEAN CORPUSCULAR VOLUME 86.9 fL (75.5-95.3); MONOCYTES % (AUTO) 8.7 % (0.0-11.0); NEUTROPHILS # (AUTO) 9.3 K/uL (1.8-8.9); NEUTROPHILS % (AUTO) 83.8 % (38.5-71.5); PLATELET COUNT (AUTO) 472 K/uL (179-408); RED BLOOD CELL COUNT(AUTO) 3.18 MIL/uL (3.63-4.92); RED CELL DISTRIBUTION WIDTH 14.7 % (12.3-17.7); WHITE BLOOD COUNT (AUTO) 11.1 K/uL (3.8-11.8)
[2024-07-24] MEDS: FUROSEMIDE 40 MG/4 ML VIAL IV ONE (05:16)
[2024-07-24 05:34] LABS: CALCIUM 8.4 mg/dL (8.5-10.1); CARBON DIOXIDE 25 mmol/L (21-32); CHLORIDE 101 mmol/L (98-107); CREATININE 0.6 mg/dL (0.6-1.3); GLUCOSE 97 mg/dL (74-106); MAGNESIUM 2.5 mg/dL (1.8-2.4); PHOSPHOROUS 2.6 mg/dL (2.5-4.9); SODIUM SERUM 137 mmol/L (136-145); UREA NITROGEN, BLOOD 12 mg/dL (7-18)
[2024-07-24 05:37] LABS: POTASSIUM 2.4 mmol/L (3.5-5.1)
[2024-07-24] MEDS: POTASSIUM CHLORIDE 50 ML IV SCH (06:03)
[2024-07-24] MEDS ORDERED: POTASSIUM CHLORIDE 50 ML IV SCH (09:00)
[2024-07-24 09:23] LABS: ALBUMIN 3.5 g/dL (3.4-5.0); BILIRUBIN,DIRECT 0.7 mg/dL (0.0-0.2); BILIRUBIN,TOTAL 1.4 mg/dL (0.2-1.0); TOTAL PROTEIN, SERUM 6.7 g/dL (6.4-8.2)
[2024-07-24] MEDS: POTASSIUM CHLORIDE 20 MEQ POWDER PACKET GT ONE (09:35)
[2024-07-24] MEDS: IV D5/ 0.9% NACL 1,000 ML IV SCH (13:16)
[2024-07-24] MEDS ORDERED: MAGNESIUM CITRATE 296 ML BOTTLE ONE (21:12)
[2024-07-25] VITALS (30 sets, daily range): BP systolic 90–130; BP diastolic 48–72; TEMP 97.2–98.5; O2SAT 97–100
[2024-07-25 04:58] LABS: BASOPHILS % (AUTO) 0.3 % (0.0-2.0); EOSINOPHILS % (AUTO) 0.4 % (0.0-7.0); HEMATOCRIT 28.7 % (31.2-41.9); HEMOGLOBIN 9.5 g/dL (10.9-14.3); LYMPHOCYTES # (AUTO) 0.7 K/uL (0.8-4.8); LYMPHOCYTES % (AUTO) 6.5 % (20.5-51.5); MEAN CORPUSCULAR HEMOGLOBIN 28.8 uug (24.7-32.8); MEAN CORPUSCULAR HGB CONC 33 g/dL (32.3-35.6); MEAN CORPUSCULAR VOLUME 87.4 fL (75.5-95.3); MONOCYTES # (AUTO) 1.1 K/uL (0.1-1.30); MONOCYTES % (AUTO) 10.6 % (0.0-11.0); NEUTROPHILS # (AUTO) 8.4 K/uL (1.8-8.9); NEUTROPHILS % (AUTO) 82.2 % (38.5-71.5); PLATELET COUNT (AUTO) 560 K/uL (179-408); RED BLOOD CELL COUNT(AUTO) 3.29 MIL/uL (3.63-4.92); RED CELL DISTRIBUTION WIDTH 14.8 % (12.3-17.7); WHITE BLOOD COUNT (AUTO) 10.2 K/uL (3.8-11.8)
[2024-07-25 05:08] LABS: CALCIUM 8.1 mg/dL (8.5-10.1); CARBON DIOXIDE 24 mmol/L (21-32); CHLORIDE 103 mmol/L (98-107); CREATININE 0.8 mg/dL (0.6-1.3); GLUCOSE 289 mg/dL (74-106); MAGNESIUM 2.6 mg/dL (1.8-2.4); PHOSPHOROUS 3.7 mg/dL (2.5-4.9); SODIUM SERUM 138 mmol/L (136-145); UREA NITROGEN, BLOOD 21 mg/dL (7-18)
[2024-07-25 05:31] LABS: POTASSIUM 2.7 mmol/L (3.5-5.1)
[2024-07-25] MEDS: POTASSIUM CHLORIDE 50 ML IV ONE (06:15)
[2024-07-25] MEDS ORDERED: POTASSIUM CHLORIDE 50 ML IV SCH ×2 (06:45→08:45)
[2024-07-25] MEDS: POTASSIUM CHLORIDE 50 ML IV SCH ×3 (08:05→22:11)
[2024-07-25] MEDS: GOLYTELY 4000 ML BOTTLE NG ONE (09:00)
[2024-07-25] MEDS: FLEET ENEMA 133 ML BOTTLE RC ONE (09:45)
[2024-07-25] MEDS: FLEET ENEMA 133 ML BOTTLE RC SCH (13:19)
[2024-07-25] MEDS: KETOROLAC TROMETHAMINE 15 MG INJ IVP PRN (14:47)
[2024-07-25] MEDS: HYDROMORPHONE 1 MG/1 ML DISP.SYRIN IV ONE ×2 (18:36→18:40)
[2024-07-25 20:35] LABS: CANCER AG, 125 44.2
[2024-07-25 20:37] LABS: HEPATITIS C VIRUS ANTIBODY NEGATIVE
[2024-07-25] MEDS: METOCLOPRAMIDE HCL 10 MG/2 ML VIAL IV SCH (21:01)
[2024-07-25 21:42] LABS: CALCIUM 8.2 mg/dL (8.5-10.1); CARBON DIOXIDE 19 mmol/L (21-32); CHLORIDE 105 mmol/L (98-107); CREATININE 1.2 mg/dL (0.6-1.3); GLUCOSE 291 mg/dL (74-106); POTASSIUM 3.1 mmol/L (3.5-5.1); SODIUM SERUM 138 mmol/L (136-145); UREA NITROGEN, BLOOD 33 mg/dL (7-18)
[2024-07-25 21:57] LABS: THYROID STIMULATING HORMONE 10.099 mIU/mL (0.358-3.740)
[2024-07-26] VITALS (32 sets, daily range): BP systolic 89–109; BP diastolic 47–81; TEMP 97.6–98.1; O2SAT 96–100
[2024-07-26] MEDS: METOCLOPRAMIDE HCL 10 MG/2 ML VIAL IV SCH (01:55)
[2024-07-26 05:24] LABS: BASOPHILS % (AUTO) 0.4 % (0.0-2.0); DIFFERENTIAL COMMENT 1; EOSINOPHILS % (AUTO) 0.4 % (0.0-7.0); HEMOGLOBIN 8.9 g/dL (10.9-14.3); LYMPHOCYTES # (AUTO) 0.7 K/uL (0.8-4.8); LYMPHOCYTES % (AUTO) 5.9 % (20.5-51.5); MEAN CORPUSCULAR HEMOGLOBIN 28.5 uug (24.7-32.8); MEAN CORPUSCULAR HGB CONC 32 g/dL (32.3-35.6); MONOCYTES # (AUTO) 1.2 K/uL (0.1-1.30); MONOCYTES % (AUTO) 9.9 % (0.0-11.0); NEUTROPHILS # (AUTO) 9.7 K/uL (1.8-8.9); NEUTROPHILS % (AUTO) 83.4 % (38.5-71.5); PLATELET COUNT (AUTO) 652 K/uL (179-408); RED BLOOD CELL COUNT(AUTO) 3.11 MIL/uL (3.63-4.92); RED CELL DISTRIBUTION WIDTH 15.1 % (12.3-17.7); WHITE BLOOD COUNT (AUTO) 11.7 K/uL (3.8-11.8)
[2024-07-26 05:26] LABS: CALCIUM 8.3 mg/dL (8.5-10.1); CARBON DIOXIDE 16 mmol/L (21-32); CHLORIDE 107 mmol/L (98-107); CREATININE 1.5 mg/dL (0.6-1.3); GLUCOSE 382 mg/dL (74-106); MAGNESIUM 3.7 mg/dL (1.8-2.4); PHOSPHOROUS 5.9 mg/dL (2.5-4.9); POTASSIUM 3.8 mmol/L (3.5-5.1); SODIUM SERUM 137 mmol/L (136-145); UREA NITROGEN, BLOOD 36 mg/dL (7-18)
[2024-07-26] MEDS ORDERED: DEXTROSE 50% 50 ML DISP.SYRIN IV PRN (08:00)
[2024-07-26] MEDS ORDERED: POTASSIUM CHLORIDE 50 ML IV SCH (08:00)
[2024-07-26] MEDS ORDERED: TPN/PPN PER PHARMACY IV PRN (08:15)
[2024-07-26 08:54] LABS: ALBUMIN 2.4 g/dL (3.4-5.0); BILIRUBIN,DIRECT 0.7 mg/dL (0.0-0.2); BILIRUBIN,TOTAL 1.1 mg/dL (0.2-1.0); TOTAL PROTEIN, SERUM 6.6 g/dL (6.4-8.2)
[2024-07-26] MEDS: BLOOD SUGAR DIAGNOSTIC 1 EACH STRIP VI SCH (08:57)
[2024-07-26] MEDS: IV LACTATED RINGERS SOLUTION 1,000 ML IV PRN (09:05)
[2024-07-26] MEDS: INSULIN REGULAR, HUMAN 1000 UNIT/10 ML VIAL SQ PRN (09:37)
[2024-07-26] MEDS: TPN BAG #1 IV SCH (11:51)
[2024-07-26] MEDS: IV LACTATED RINGERS SOLUTION 1,000 ML IV SCH ×2 (12:43→19:43)
[2024-07-26] MEDS ORDERED: MAGNESIUM HYDROXIDE 30 ML LIQUID UDC PO PRN (13:30)
[2024-07-26 15:15] LABS: *BILIRUBIN,URIN 1+ (NEGATIVE); *KETONES,URINE TRACE (NEGATIVE); *PROTEIN,URINE 2+ (NEGATIVE); *UROBILINOGEN,URINE 0.2 E.U./dl (NORMAL); LEUKOCYTE ESTERASE ,URINE NEGATIVE (NEGATIVE); NITRITE, URINE NEGATIVE (NEGATIVE); UGLUCOSE NEGATIVE (NEGATIVE)
[2024-07-26 15:28] LABS: *BLOOD, URINE TRACE (NEGATIVE)
[2024-07-26 15:29] LABS: *CLARITY,URINE HAZY (CLEAR); *COLOR,URINE YELLOW (YELLOW)
[2024-07-26 16:15] LABS: RBC,URINE 0-3 /HPF (0-3); WBC,URINE 0-3 /HPF (0-3)
[2024-07-26 16:16] LABS: BACTERIA,URINE FEW /HPF (NONE SEEN)
[2024-07-26 16:23] LABS: SQUAMOUS EPITHELIAL CELL,UR FEW /HPF (NONE SEEN)
[2024-07-26 16:24] LABS: URINE AMORPHOUS URATE MODERATE /HPF
[2024-07-27] VITALS (25 sets, daily range): BP systolic 88–123; BP diastolic 39–75; TEMP 97.6–98.7; O2SAT 96–100
[2024-07-27] MEDS: IV LACTATED RINGERS SOLUTION 1,000 ML IV SCH ×2 (04:10→18:56)
[2024-07-27 06:41] LABS: BASOPHILS # (AUTO) 0.1 K/UL (0.0-0.2); BASOPHILS % (AUTO) 0.5 % (0.0-2.0); EOSINOPHILS # (AUTO) 0.1 K/uL (0.0-0.7); EOSINOPHILS % (AUTO) 0.7 % (0.0-7.0); HEMATOCRIT 28.8 % (31.2-41.9); HEMOGLOBIN 9.4 g/dL (10.9-14.3); LYMPHOCYTES # (AUTO) 0.6 K/uL (0.8-4.8); LYMPHOCYTES % (AUTO) 5.8 % (20.5-51.5); MEAN CORPUSCULAR HEMOGLOBIN 29.7 uug (24.7-32.8); MEAN CORPUSCULAR HGB CONC 33 g/dL (32.3-35.6); MEAN CORPUSCULAR VOLUME 90.9 fL (75.5-95.3); MONOCYTES # (AUTO) 0.9 K/uL (0.1-1.30); MONOCYTES % (AUTO) 8.8 % (0.0-11.0); NEUTROPHILS # (AUTO) 8.8 K/uL (1.8-8.9); NEUTROPHILS % (AUTO) 84.2 % (38.5-71.5); PLATELET COUNT (AUTO) 692 K/uL (179-408); RED BLOOD CELL COUNT(AUTO) 3.17 MIL/uL (3.63-4.92); RED CELL DISTRIBUTION WIDTH 15.2 % (12.3-17.7); WHITE BLOOD COUNT (AUTO) 10.5 K/uL (3.8-11.8)
[2024-07-27 06:52] LABS: DIFFERENTIAL COMMENT 1
[2024-07-27 07:09] LABS: CARBON DIOXIDE 19 mmol/L (21-32); CHLORIDE 104 mmol/L (98-107); POTASSIUM 3.3 mmol/L (3.5-5.1); SODIUM SERUM 136 mmol/L (136-145)
[2024-07-27 07:10] LABS: CALCIUM 8.9 mg/dL (8.5-10.1); CREATININE 1.5 mg/dL (0.6-1.3); GLUCOSE 138 mg/dL (74-106); PHOSPHOROUS 4.7 mg/dL (2.5-4.9); UREA NITROGEN, BLOOD 53 mg/dL (7-18)
[2024-07-27 07:18] LABS: MAGNESIUM 4.2 mg/dL (1.8-2.4)
[2024-07-27 07:43] LABS: TRIGLYCERIDES 160 MG/DL (30-150)
[2024-07-27] MEDS: LINACLOTIDE 290 MCG NG SCH (08:47)
[2024-07-27] MEDS: POTASSIUM CHLORIDE 50 ML IV SCH ×3 (13:22→21:13)
[2024-07-27] MEDS ORDERED: GADOTERATE MEGLUMINE 10 MMOL/20 ML VIAL IV ONE (14:30)
[2024-07-27] MEDS: IV FAT EMULSIONS 20% 250 ML IV ONE (18:32)
[2024-07-27] MEDS ORDERED: TPN BAG # 2 IV SCH (23:00)
[2024-07-27] MEDS: TPN IV SCH (23:14)
[2024-07-27] MEDS: LACTULOSE 20 G/30 ML LIQUID UDC NG ONE (23:47)
[2024-07-28] VITALS (19 sets, daily range): BP systolic 83–131; BP diastolic 42–71; TEMP 97–97.8; O2SAT 97–100
[2024-07-28 05:31] LABS: BASOPHILS % (AUTO) 0.4 % (0.0-2.0); EOSINOPHILS % (AUTO) 0.4 % (0.0-7.0); HEMATOCRIT 29.3 % (31.2-41.9); HEMOGLOBIN 9.7 g/dL (10.9-14.3); LYMPHOCYTES # (AUTO) 0.8 K/uL (0.8-4.8); LYMPHOCYTES % (AUTO) 6.5 % (20.5-51.5); MEAN CORPUSCULAR HGB CONC 33 g/dL (32.3-35.6); MEAN CORPUSCULAR VOLUME 88.1 fL (75.5-95.3); MONOCYTES # (AUTO) 1.1 K/uL (0.1-1.30); MONOCYTES % (AUTO) 9.5 % (0.0-11.0); NEUTROPHILS # (AUTO) 9.7 K/uL (1.8-8.9); NEUTROPHILS % (AUTO) 83.2 % (38.5-71.5); PLATELET COUNT (AUTO) 709 K/uL (179-408); RED BLOOD CELL COUNT(AUTO) 3.33 MIL/uL (3.63-4.92); RED CELL DISTRIBUTION WIDTH 14.6 % (12.3-17.7); WHITE BLOOD COUNT (AUTO) 11.6 K/uL (3.8-11.8)
[2024-07-28 05:46] LABS: ALBUMIN 2.4 g/dL (3.4-5.0); BILIRUBIN,DIRECT 0.7 mg/dL (0.0-0.2); BILIRUBIN,TOTAL 1.1 mg/dL (0.2-1.0); TOTAL PROTEIN, SERUM 7.4 g/dL (6.4-8.2)
[2024-07-28 05:59] LABS: CALCIUM 9.2 mg/dL (8.5-10.1); CARBON DIOXIDE 18 mmol/L (21-32); CHLORIDE 106 mmol/L (98-107); CREATININE 1.1 mg/dL (0.6-1.3); GLUCOSE 168 mg/dL (74-106); MAGNESIUM 3.9 mg/dL (1.8-2.4); PHOSPHOROUS 2.7 mg/dL (2.5-4.9); POTASSIUM 3.2 mmol/L (3.5-5.1); SODIUM SERUM 137 mmol/L (136-145); UREA NITROGEN, BLOOD 63 mg/dL (7-18)
[2024-07-28] MEDS: LACTULOSE 20 G/30 ML LIQUID UDC PO ONE (08:15)
[2024-07-28] MEDS: POTASSIUM CHLORIDE 20 MEQ POWDER PACKET GT ONE (08:31)
[2024-07-28] MEDS: POTASSIUM CHLORIDE 50 ML IV SCH (08:32)
[2024-07-28] MEDS ORDERED: LACTULOSE 20 G/30 ML LIQUID UDC PO ONE (09:00)
[2024-07-28] MEDS: LIOTHYRONINE SODIUM 25 MCG TABLET NG SCH (09:05)
[2024-07-28] MEDS: LEVOTHYROXINE SODIUM 200 MCG VIAL IVP SCH (09:08)
[2024-07-28] MEDS: REMEDY ESSENTIAL ZINC PASTE 113 GM TOP PRN (12:50)
[2024-07-29] VITALS (13 sets, daily range): BP systolic 109–131; BP diastolic 45–78; TEMP 96.8–98.5; O2SAT 98–100
[2024-07-29] MEDS: TPN IV SCH (00:34)
[2024-07-29 05:04] LABS: BASOPHILS # (AUTO) 0.3 K/UL (0.0-0.2); BASOPHILS % (AUTO) 2.6 % (0.0-2.0); EOSINOPHILS # (AUTO) 0.1 K/uL (0.0-0.7); EOSINOPHILS % (AUTO) 1.2 % (0.0-7.0); HEMATOCRIT 27.7 % (31.2-41.9); HEMOGLOBIN 9.1 g/dL (10.9-14.3); LYMPHOCYTES # (AUTO) 0.5 K/uL (0.8-4.8); LYMPHOCYTES % (AUTO) 4.6 % (20.5-51.5); MEAN CORPUSCULAR HEMOGLOBIN 28.7 uug (24.7-32.8); MEAN CORPUSCULAR HGB CONC 33 g/dL (32.3-35.6); MEAN CORPUSCULAR VOLUME 87.8 fL (75.5-95.3); MONOCYTES # (AUTO) 0.8 K/uL (0.1-1.30); MONOCYTES % (AUTO) 7.8 % (0.0-11.0); NEUTROPHILS # (AUTO) 8.6 K/uL (1.8-8.9); NEUTROPHILS % (AUTO) 83.8 % (38.5-71.5); PLATELET COUNT (AUTO) 694 K/uL (179-408); RED BLOOD CELL COUNT(AUTO) 3.16 MIL/uL (3.63-4.92); RED CELL DISTRIBUTION WIDTH 15.1 % (12.3-17.7); WHITE BLOOD COUNT (AUTO) 10.3 K/uL (3.8-11.8)
[2024-07-29 05:53] LABS: IRON, SERUM 10 ug/dL (50-175)
[2024-07-29 06:05] LABS: ALANINE AMINOTRANSFERASE 22 U/L (14-59); ALBUMIN 2.2 g/dL (3.4-5.0); ALKALINE PHOSPHATASE 140 U/L (50-136); ASPARTATE AMINOTRANSFERASE 17 U/L (15-37); BILIRUBIN,TOTAL 0.9 mg/dL (0.2-1.0); CALCIUM 9.1 mg/dL (8.5-10.1); CARBON DIOXIDE 16 mmol/L (21-32); CHLORIDE 111 mmol/L (98-107); GLUCOSE 148 mg/dL (74-106); MAGNESIUM 3.4 mg/dL (1.8-2.4); PHOSPHOROUS 2.3 mg/dL (2.5-4.9); POTASSIUM 3.4 mmol/L (3.5-5.1); SODIUM SERUM 141 mmol/L (136-145); UREA NITROGEN, BLOOD 70 mg/dL (7-18)
[2024-07-29 08:55] LABS: CHOLESTEROL 77 mg/dL (<200); HDL CHOLESTEROL 38 mg/dL (40-60); TRIGLYCERIDES 99 MG/DL (30-150)
[2024-07-29] MEDS: POTASSIUM PHOSPHATE MM 15 MMOL in IV NORMAL SALINE 250 ML IV ONE (10:10)
[2024-07-29 11:57] LABS: ABG BASE EXCESS -11.2 mmol/L (-2.0-3.0); ABG PCO2 23.9 mmHg (32.0-45.0); ABG PH 7.353 (7.350-7.450); ABG PO2 101.4 mmHg (83.0-108.0); ABG SITE RIGHT RADIAL; ABG TOTAL HEMOGLOBIN 9.1 G/dL (12.0-16.0); AaDO2 97.5 mmHg; COHb 1.3 % (0.5-1.5); MetHb 0.3 % (0.0-1.5); O2Hb 96.9 % (94.0-98.0)
[2024-07-29] MEDS: MODAFINIL 100 MG TABLET NG SCH (13:06)
[2024-07-29] MEDS: IV FAT EMULSIONS 20% 250 ML IV ONE (14:24)
[2024-07-30] VITALS (17 sets, daily range): BP systolic 107–134; BP diastolic 49–62; TEMP 97–98.3; O2SAT 95–99
[2024-07-30] MEDS: TPN BAG # 4 IV SCH (00:23)
[2024-07-30 05:15] LABS: BASOPHILS % (AUTO) 0.2 % (0.0-2.0); EOSINOPHILS # (AUTO) 0.1 K/uL (0.0-0.7); EOSINOPHILS % (AUTO) 0.8 % (0.0-7.0); HEMATOCRIT 27.5 % (31.2-41.9); HEMOGLOBIN 9.1 g/dL (10.9-14.3); LYMPHOCYTES # (AUTO) 1.4 K/uL (0.8-4.8); LYMPHOCYTES % (AUTO) 10.1 % (20.5-51.5); MEAN CORPUSCULAR HEMOGLOBIN 28.8 uug (24.7-32.8); MEAN CORPUSCULAR HGB CONC 33 g/dL (32.3-35.6); MEAN CORPUSCULAR VOLUME 87.3 fL (75.5-95.3); MONOCYTES # (AUTO) 1.3 K/uL (0.1-1.30); MONOCYTES % (AUTO) 9.8 % (0.0-11.0); NEUTROPHILS # (AUTO) 10.8 K/uL (1.8-8.9); NEUTROPHILS % (AUTO) 79.1 % (38.5-71.5); PLATELET COUNT (AUTO) 699 K/uL (179-408); RED BLOOD CELL COUNT(AUTO) 3.15 MIL/uL (3.63-4.92); WHITE BLOOD COUNT (AUTO) 13.6 K/uL (3.8-11.8)
[2024-07-30 05:52] LABS: ALBUMIN 2.1 g/dL (3.4-5.0); BILIRUBIN,DIRECT 0.7 mg/dL (0.0-0.2); BILIRUBIN,TOTAL 0.9 mg/dL (0.2-1.0); TOTAL PROTEIN, SERUM 7.1 g/dL (6.4-8.2)
[2024-07-30 05:53] LABS: CALCIUM 9.7 mg/dL (8.5-10.1); CARBON DIOXIDE 14 mmol/L (21-32); CHLORIDE 112 mmol/L (98-107); CREATININE 0.8 mg/dL (0.6-1.3); GLUCOSE 143 mg/dL (74-106); MAGNESIUM 3.3 mg/dL (1.8-2.4); PHOSPHOROUS 2.2 mg/dL (2.5-4.9); POTASSIUM 3.2 mmol/L (3.5-5.1); SODIUM SERUM 142 mmol/L (136-145); UREA NITROGEN, BLOOD 69 mg/dL (7-18)
[2024-07-30] MEDS ORDERED: POTASSIUM CHLORIDE 50 ML IV SCH (08:15)
[2024-07-30] MEDS ORDERED: POTASSIUM PHOSPHATE MM 7.5 MMOL in IV NORMAL SALINE 97.5 ML IV ONE (08:15)
[2024-07-30] MEDS ORDERED: POTASSIUM CHLORIDE 20 MEQ POWDER PACKET GT ONE (08:15)
[2024-07-30] MEDS: LEVOTHYROXINE SODIUM 100 MCG VIAL IV SCH (08:29)
[2024-07-30] MEDS: AMIODARONE HCL 200 MG TABLET PO SCH (09:59)
[2024-07-30] MEDS: POTASSIUM PHOSPHATE MM 15 MMOL in IV NORMAL SALINE 250 ML IV ONE (12:16)
[2024-07-30] MEDS: TPN BAG # 5 IV SCH (12:44)
[2024-07-31] VITALS (18 sets, daily range): BP systolic 119–136; BP diastolic 50–62; TEMP 97.6–98.7; O2SAT 97–99
[2024-07-31] MEDS: TPN IV SCH (01:51)
[2024-07-31 05:07] LABS: BASOPHILS % (AUTO) 0.3 % (0.0-2.0); EOSINOPHILS # (AUTO) 0.1 K/uL (0.0-0.7); EOSINOPHILS % (AUTO) 0.6 % (0.0-7.0); HEMATOCRIT 24.9 % (31.2-41.9); HEMOGLOBIN 8.3 g/dL (10.9-14.3); LYMPHOCYTES # (AUTO) 1.5 K/uL (0.8-4.8); LYMPHOCYTES % (AUTO) 9.6 % (20.5-51.5); MEAN CORPUSCULAR HGB CONC 33 g/dL (32.3-35.6); MEAN CORPUSCULAR VOLUME 86.9 fL (75.5-95.3); MONOCYTES % (AUTO) 6.7 % (0.0-11.0); NEUTROPHILS # (AUTO) 12.7 K/uL (1.8-8.9); NEUTROPHILS % (AUTO) 82.8 % (38.5-71.5); PLATELET COUNT (AUTO) 629 K/uL (179-408); RED BLOOD CELL COUNT(AUTO) 2.86 MIL/uL (3.63-4.92); RED CELL DISTRIBUTION WIDTH 14.9 % (12.3-17.7); WHITE BLOOD COUNT (AUTO) 15.3 K/uL (3.8-11.8)
[2024-07-31 05:31] LABS: ALANINE AMINOTRANSFERASE 36 U/L (14-59); ALBUMIN 1.8 g/dL (3.4-5.0); ALKALINE PHOSPHATASE 169 U/L (50-136); ASPARTATE AMINOTRANSFERASE 35 U/L (15-37); BILIRUBIN,DIRECT 0.7 mg/dL (0.0-0.2); CALCIUM 8.9 mg/dL (8.5-10.1); CARBON DIOXIDE 18 mmol/L (21-32); CHLORIDE 115 mmol/L (98-107); CREATININE 0.8 mg/dL (0.6-1.3); GLUCOSE 143 mg/dL (74-106); PHOSPHOROUS 2.5 mg/dL (2.5-4.9); POTASSIUM 3.9 mmol/L (3.5-5.1); SODIUM SERUM 145 mmol/L (136-145); TOTAL PROTEIN, SERUM 6.8 g/dL (6.4-8.2); UREA NITROGEN, BLOOD 67 mg/dL (7-18)
[2024-07-31 05:40] LABS: THYROID STIMULATING HORMONE 2.037 mIU/mL (0.358-3.740)
[2024-07-31 12:55] LABS: ABG BASE EXCESS -9.7 mmol/L (-2.0-3.0); ABG HCO3 15.8 mmol/L (21.0-28.0); ABG PCO2 32.6 mmHg (32.0-45.0); ABG PH 7.302 (7.350-7.450); ABG PO2 115.1 mmHg (83.0-108.0); ABG SITE RIGHT RADIAL; ABG TOTAL HEMOGLOBIN 9.2 G/dL (12.0-16.0); AaDO2 97.9 mmHg; MetHb 0.2 % (0.0-1.5); O2Hb 97.1 % (94.0-98.0)
[2024-07-31] MEDS: IV FAT EMULSIONS 20% 250 ML IV ONE (14:24)
[2024-07-31] MEDS: TPN BAG # 7 IV SCH (14:24)
[2024-07-31 20:38] LABS: ABG BASE EXCESS -10.4 mmol/L (-2.0-3.0); ABG HCO3 15.1 mmol/L (21.0-28.0); ABG PCO2 32.1 mmHg (32.0-45.0); ABG PH 7.291 (7.350-7.450); ABG PO2 95.7 mmHg (83.0-108.0); ABG SITE LEFT RADIAL; AaDO2 96.7 mmHg; COHb 1.8 % (0.5-1.5); MetHb 0.2 % (0.0-1.5); O2Hb 95.9 % (94.0-98.0)
[2024-07-31] MEDS ORDERED: PIPERACILLIN SODIUM/TAZOBACTAM 3.375 G in IV DEXTROSE 5% 50 ML IV SCH ×2 (21:00→22:00)
[2024-07-31] MEDS ORDERED: LEVALBUTEROL HCL NEB 0.63 MG/3 ML NEBU NEB PRN (21:00)
[2024-07-31] MEDS ORDERED: PIPERACILLIN SODIUM/TAZO 3.375 GM VIAL ONE (21:15)
[2024-07-31] MEDS ORDERED: VANCOMYCIN 1000 MG VIAL ONE (21:16)
[2024-07-31] MEDS: VANCOMYCIN IV 1,000 MG in IV DEXTROSE 5% 250 ML IV ONE (21:28)
[2024-07-31] MEDS ORDERED: MORPHINE SULFATE 2 MG/1 ML DISP.SYRIN IV PRN (22:00)
[2024-08-01] VITALS (50 sets, daily range): BP systolic 73–168; BP diastolic 43–145; TEMP 97.5–99.2; O2SAT 95–100
[2024-08-01] MEDS: TPN BAG # 8 IV SCH (03:10)
[2024-08-01 03:12] LABS: BASOPHILS # (AUTO) 0.1 K/UL (0.0-0.2); BASOPHILS % (AUTO) 0.3 % (0.0-2.0); EOSINOPHILS # (AUTO) 0.1 K/uL (0.0-0.7); EOSINOPHILS % (AUTO) 0.4 % (0.0-7.0); HEMATOCRIT 25.6 % (31.2-41.9); HEMOGLOBIN 8.1 g/dL (10.9-14.3); LYMPHOCYTES # (AUTO) 1.8 K/uL (0.8-4.8); LYMPHOCYTES % (AUTO) 8.8 % (20.5-51.5); MEAN CORPUSCULAR HEMOGLOBIN 27.9 uug (24.7-32.8); MEAN CORPUSCULAR HGB CONC 32 g/dL (32.3-35.6); MEAN CORPUSCULAR VOLUME 87.7 fL (75.5-95.3); MONOCYTES # (AUTO) 1.4 K/uL (0.1-1.30); MONOCYTES % (AUTO) 6.8 % (0.0-11.0); NEUTROPHILS # (AUTO) 16.9 K/uL (1.8-8.9); NEUTROPHILS % (AUTO) 83.7 % (38.5-71.5); PLATELET COUNT (AUTO) 589 K/uL (179-408); RED BLOOD CELL COUNT(AUTO) 2.92 MIL/uL (3.63-4.92); RED CELL DISTRIBUTION WIDTH 15.4 % (12.3-17.7); WHITE BLOOD COUNT (AUTO) 20.1 K/uL (3.8-11.8)
[2024-08-01 03:32] LABS: ALBUMIN 1.6 g/dL (3.4-5.0); BILIRUBIN,DIRECT 0.8 mg/dL (0.0-0.2); BILIRUBIN,TOTAL 1.1 mg/dL (0.2-1.0); TOTAL PROTEIN, SERUM 6.4 g/dL (6.4-8.2)
[2024-08-01 03:36] LABS: DIFFERENTIAL COMMENT 1
[2024-08-01 03:55] LABS: CALCIUM 8.6 mg/dL (8.5-10.1); CARBON DIOXIDE 19 mmol/L (21-32); CREATININE 0.8 mg/dL (0.6-1.3); GLUCOSE 148 mg/dL (74-106); MAGNESIUM 2.7 mg/dL (1.8-2.4); NT-PRO BNP 983 pg/mL (0-125); PHOSPHOROUS 3.6 mg/dL (2.5-4.9); UREA NITROGEN, BLOOD 64 mg/dL (7-18)
[2024-08-01 03:58] LABS: C-REACTIVE PROTEIN 22.24 mg/dL (0.00-0.30)
[2024-08-01 04:17] LABS: ABG BASE EXCESS -12.8 mmol/L (-2.0-3.0); ABG HCO3 22.9 mmol/L (21.0-28.0); ABG PCO2 > 165.6 mmHg (32.0-45.0); ABG PH 6.758 (7.350-7.450); ABG PO2 158.5 mmHg (83.0-108.0); ABG SITE LEFT RADIAL; ABG TOTAL HEMOGLOBIN 8.4 G/dL (12.0-16.0); COHb 2.4 % (0.5-1.5); MetHb 0.3 % (0.0-1.5); O2Hb 96.1 % (94.0-98.0)
[2024-08-01 04:37] LABS: CHLORIDE 115 mmol/L (98-107); POTASSIUM 4.4 mmol/L (3.5-5.1); SODIUM SERUM 145 mmol/L (136-145); THYROID STIMULATING HORMONE 0.635 mIU/mL (0.358-3.740)
[2024-08-01] MEDS: NOREPINEPHRINE 8MG/NS 250ML 250 ML IV PRN (05:06)
[2024-08-01] MEDS: SODIUM BICARBONATE 8.4% 50 MEQ/50 ML DISP.SYRIN IV ONE (05:25)
[2024-08-01] MEDS: PROPOFOL 100 ML IV PRN (05:35)
[2024-08-01 06:11] LABS: ABG HCO3 19.2 mmol/L (21.0-28.0); ABG PCO2 46.9 mmHg (32.0-45.0); ABG PH 7.229 (7.350-7.450); ABG PO2 248.7 mmHg (83.0-108.0); ABG SITE LEFT RADIAL; ABG TOTAL HEMOGLOBIN 8.6 G/dL (12.0-16.0); AaDO2 99.4 mmHg; COHb 2.5 % (0.5-1.5); MetHb 0.2 % (0.0-1.5); O2Hb 97.1 % (94.0-98.0); VT, ABG 450 mL
[2024-08-01] MEDS: LIOTHYRONINE SODIUM 25 MCG TABLET NG SCH (07:09)
[2024-08-01] MEDS: SODIUM BICARBONATE 8.4% 150 MEQ in IV D5W 1000ML 1,000 ML IV PRN (07:47)
[2024-08-01] MEDS ORDERED: PIPERACILLIN SODIUM/TAZOBACTAM 3.375 G in IV DEXTROSE 5% 50 ML IV SCH (08:15)
[2024-08-01] MEDS ORDERED: IV NORMAL SALINE 1000 ML BAG IV ONE (08:15)
[2024-08-01] MEDS ORDERED: LIOTHYRONINE SODIUM 25 MCG TABLET NG SCH (09:00)
[2024-08-01] MEDS: NS IV ONE (09:06)
[2024-08-01] MEDS: LEVOTHYROXINE SODIUM 100 MCG VIAL IV SCH (09:08)
[2024-08-01] MEDS: PANTOPRAZOLE SODIUM 40 MG VIAL IV SCH (09:08)
[2024-08-01] MEDS: PIPERACILLIN SODIUM/TAZOBACTAM 3.375 G in IV DEXTROSE 5% 100 ML IV SCH (09:14)
[2024-08-01] MEDS: AMIODARONE HCL IV 150 MG in IV DEXTROSE 5% 100 ML IV ONE (10:30)
[2024-08-01] MEDS: AMIODARONE HCL IV 450 MG in IV DEXTROSE 5% 250 ML IV PRN (10:43)
[2024-08-01] MEDS ORDERED: BISA10SU12 RC (11:29)
[2024-08-01] MEDS ORDERED: Morphine Sulfate Inj IV (11:29)
[2024-08-01] MEDS ORDERED: RXVAN IV (11:29)
[2024-08-01] MEDS ORDERED: RXVAN XX (11:29)
[2024-08-01] MEDS ORDERED: LEVA0.635 NEB (11:29)
[2024-08-01] MEDS ORDERED: ACET-73 NG (11:29)
[2024-08-01] MEDS ORDERED: AMIO100T4 NG (11:29)
[2024-08-01] MEDS ORDERED: MENT113O TOP (11:29)
[2024-08-01] MEDS ORDERED: NORE8PLA12 IV (11:29)
[2024-08-01] MEDS ORDERED: HYDR20VI4 IV (11:29)
[2024-08-01] MEDS ORDERED: AMIODARONE DRIP IV (11:29)
[2024-08-01] MEDS ORDERED: PIPE3.379 IV (11:29)
[2024-08-01] MEDS ORDERED: PROP10VI IV (11:29)
[2024-08-01] MEDS ORDERED: PANT40VI IV (11:29)
[2024-08-01] MEDS: IV D5/ 0.9% NACL 1,000 ML IV PRN (12:09)
[2024-08-01 13:59] LABS: *RHEUMATOID FACTOR SCREEN NEGATIVE (NEGATIVE)
[2024-08-01] MEDS ORDERED: VANCOMYCIN IV 1,000 MG in IV DEXTROSE 5% 250 ML IV SCH (21:30)
[2024-08-03 09:06] LABS: *IMMUNOGLOBULIN G, SERUM 913 mg/dL (586-1602); IMMUNOGLOBULIN A, SERUM 331 mg/dL (64-422); IMMUNOGLOBULIN M, SERUM 138 mg/dL (26-217)
[2024-08-03 17:06] LABS: FREE KAPPA LT CHAINS SERUM 90.4 mg/L (3.3-19.4); FREE LAMBDA LT CHAIN SERUM 39.5 mg/L (5.7-26.3); KAPPA/LAMBDA RATIO SERUM 2.29 (0.26-1.65)
[2024-08-04 11:07] LABS: A/G RATIO 0.7 (0.7-1.7); ALBUMIN 2.5 g/dL (2.9-4.4); ALPHA-1-GLOBULIN 0.6 g/dL (0.0-0.4); ALPHA-2-GLOBULIN 1.2 g/dL (0.4-1.0); BETA GLOBULIN 0.8 g/dL (0.7-1.3); GAMMA GLOBULIN 0.8 g/dL (0.4-1.8); GLOBULIN, TOTAL 3.4 g/dL (2.2-3.9); M-SPIKE Not Observed g/dL (Not Observed); PROTEIN, TOTAL 5.9 g/dL (6.0-8.5)
[2024-08-04 14:08] LABS: *ANTI-SCLERODERMA-70 AB <0.2 AI (0.0-0.9); *RNP ANTIBODIES <0.2 AI (0.0-0.9); *SJOGREN'S ANTI-SS-A <0.2 AI (0.0-0.9); *SJOGREN'S ANTI-SS-B <0.2 AI (0.0-0.9); *SMITH ANTIBODIES <0.2 AI (0.0-0.9); ANTI-DNA(DS) AB, QN <1 IU/mL (0-9); ANTI-NUCLEAR AB DIRECT Negative (Negative)
== END 2024-08-01 15:45 | disposition short-term general hospital (02) | DRG 871 ==
LOC: ER 07:10 → MEDSURG3 10:26 → TELE3 18:00 → CCU 07-16 05:25
PROVIDERS: ADMIT Nurse Practitioner Acute Care; ATTEND Nurse Practitioner Acute Care
PROC: 5A09357 Assistance with Respiratory Ventilation, Less than 24 Consecutive Hours, Continuous Positive Airway Pressure (ICD-10-PCS; principal; 2024-07-16)
PROC: 0D9670Z Drainage of Stomach with Drainage Device, Via Natural or Artificial Opening (ICD-10-PCS; 2024-07-16)
PROC: 5A1935Z Respiratory Ventilation, Less than 24 Consecutive Hours (ICD-10-PCS; 2024-08-01)
PROC: 0BH17EZ Insertion of Endotracheal Airway into Trachea, Via Natural or Artificial Opening (ICD-10-PCS; 2024-08-01)
DX: A41.9 Sepsis, unspecified organism (principal); G92.8 Other toxic encephalopathy; J96.01 Acute respiratory failure with hypoxia; K55.039 Acute (reversible) ischemia of large intestine, extent unspecified; J69.0 Pneumonitis due to inhalation of food and vomit; N17.0 Acute kidney failure with tubular necrosis; R65.21 Severe sepsis with septic shock; J96.02 Acute respiratory failure with hypercapnia; S32.019A Unspecified fracture of first lumbar vertebra, initial encounter for closed fracture; D68.59 Other primary thrombophilia; J98.11 Atelectasis; E87.20 Acidosis, unspecified; E87.1 Hypo-osmolality and hyponatremia; J90 Pleural effusion, not elsewhere classified; K56.600 Partial intestinal obstruction, unspecified as to cause; K55.9 Vascular disorder of intestine, unspecified; K52.9 Noninfective gastroenteritis and colitis, unspecified; K42.9 Umbilical hernia without obstruction or gangrene; Z85.43 Personal history of malignant neoplasm of ovary; K56.41 Fecal impaction; K58.9 Irritable bowel syndrome, unspecified; I69.398 Other sequelae of cerebral infarction; G93.89 Other specified disorders of brain; K57.30 Diverticulosis of large intestine without perforation or abscess without bleeding; K44.9 Diaphragmatic hernia without obstruction or gangrene; M51.369 Other intervertebral disc degeneration, lumbar region without mention of lumbar back pain or lower extremity pain; M41.56 Other secondary scoliosis, lumbar region; K82.8 Other specified diseases of gallbladder; N20.0 Calculus of kidney; K43.9 Ventral hernia without obstruction or gangrene; E78.5 Hyperlipidemia, unspecified; I10 Essential (primary) hypertension; E87.6 Hypokalemia; I48.0 Paroxysmal atrial fibrillation; E88.09 Other disorders of plasma-protein metabolism, not elsewhere classified; D64.9 Anemia, unspecified; D75.839 Thrombocytosis, unspecified; E83.39 Other disorders of phosphorus metabolism; E03.9 Hypothyroidism, unspecified; Z74.09 Other reduced mobility; Z88.1 Allergy status to other antibiotic agents; Z96.653 Presence of artificial knee joint, bilateral; Z90.710 Acquired absence of both cervix and uterus; Z96.612 Presence of left artificial shoulder joint
CPT/HCPCS: 36415; 36569; 36600; 70030-TC; 70450; 71045; 71275; 73030; 74018; 74250; 76604; 82378; 82784; 82803; 83550; 83605; 83690; 83735; 84100; 84155; 84165; 84300; 84443; 84478; 84481; 84484; 85025; 85730; 86038; 86140; 86334; 86430; 86803; 86850; 86900; 86901; 87040; 87806; 89055; 93005; 93307; 94002; 94660; 94760; A4606; A4663; A9150; A9575; G0378; J0282; J0360; J1171; J1644; J1650; J1815; J1885; J1940; J2270; J2405; J2470; J2543; J2765; J3370; J3480; J3490; J7040; J7042; J7050; J7070; J7120; J7131; J8499; P9047; Q9963; Q9967